=== PATIENT | male | born 1965 | race Hispanic/Latino ===

== ENCOUNTER → 2020-11-07 | Day surgery (SDC) | payer MEDICARE ==
[~2020-11-07] MED LIST: AMLODIPINE BESY10 MG PO; ATORVASTATIN CA20 MG PO; DEPAKOTE ER500 MG PO; INTUNIV3 MG PO; KETOCONAZOLE15 GM TOP; LEXAPRO20 MG PO; LIDOCAINE HCL 2% LOCAL INJ 5 ML SDV VIAL INJ ONE; LOPID600 MG PO; MIDAZOLAM HCL 2 MG/2 ML VIAL ONE; MIRALAX17 GM PO; PROPOFOL IV EMULSION 10 MG/ML 20 ML VIAL ONE; VITAMIN D250 MCG PO; ZESTRIL40 MG PO; ZIPRASIDONE HCL20 MG PO
[2020-11-07 10:10] VITALS: BP 133/78
== END | disposition home or self-care (01) ==
LOC: OR 07:24
PROVIDERS: ATTEND Internal Medicine Gastroenterology
DX: R63.4 Abnormal weight loss (principal); K29.50 Unspecified chronic gastritis without bleeding; K44.9 Diaphragmatic hernia without obstruction or gangrene; K64.8 Other hemorrhoids; E11.9 Type 2 diabetes mellitus without complications; I10 Essential (primary) hypertension; F41.9 Anxiety disorder, unspecified; Z79.84 Long term (current) use of oral hypoglycemic drugs
CPT/HCPCS: 36415; 43239; 45378; 82948; 88305; 88312; 93005; J2001; J2250; J2704